=== PATIENT | male | born 1995 | race Caucasian/White ===

== ENCOUNTER 2025-02-13 13:55 | Emergency (ER) | payer OTHER, SELFPAY ==
--- NOTE | ~2025-02-13 | XR_ITS ---
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 Findings: No acute fracture or malalignment. No significant degenerative changes. Soft tissues unremarkable. Impression: No acute fracture or malalignment. Reviewed, dictated and finalized at location P. 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
--- OUTSIDE RECORDS SUMMARY | 2025-02-13 14:01 | XMS_ITS | Encounter Summary ---
Author Organization [facility] Address [address] [place] [address] Phone Care Team Providers Care Suture Gauger Name Role Phone Provider, None Primary Care Provider Unavailabl e Reason for Visit * Reason Comments Medication Refill Encounter Details Date Type Department Care Team (Late st Contact Info) Description 09/01/2021 Refill [facility] [address] [place] [address] Homa Omalley MD [address] [place], [place] [phone] Medication Refill Social History Tobacco Use Types Packs/Day Years Used Date Smoking Tobacco: Never Smokeless Tobacco: Never Alcohol Use Standard Drinks/Week Comments Never 0 (1 standard drink = 0.6 oz pur e alcohol) AUDIT-C Answer Date Recorded Frequency of Alcohol Consumption Never 02/21/2019 Average Number of Drinks Not on file 019 Frequency of Binge Drinking Not on file 02/03 Sexually Active Control Partners Comments Not Currently Sex and Gender Information Value Date Recorded Sex Assigned at Not on file Legal Sex Male 9:49 AM CDT Gender Identity Not on file Sexual Orientation Not on file COVID-19 Exposure Response Date Recorded In the last 10 days, have yo u been in contact with someone who was confirmed or suspected to have Coronavirus/COVID-19? No / Unsure 08/22/2021 10:06 AM CDT documented as of this encounter Miscellaneous Notes * Telephone Encounter - Mitali Appiah LPN - 09/02/2021 8:45 AM CDT Requested Prescriptions Pending Prescriptions Disp Refills ??? DULoxetine (CYMBALTA) [address] Particles [Pharmacy Med Name: DULOXETINE HCL DR 60 MG CAP] 180 Capsule 0 Sig: TAKE 1 CAPSULE BY MOUTH TWICE A DAY Last OV 08/22/2021 Next OV 11/18/2021 documented in this encounter Plan of Treatment Upcoming Encounters Date Type Department Care Team (Late st Contact Info) Description 03/08/2025 10:30 AM YARN PACKER Telemedicine [facility] [place] [address] [place] [phone] Homa Omalley MD [address] [place] [address] documented as of this encounter Visit Diagnoses Not on filedocumented in this encounter Care Teams Suture Gauger Relationship Specialty Start Date End Date Provider, None [place] PCP - General 01/30/19 documented as of this encounter
--- OUTSIDE RECORDS SUMMARY | 2025-02-13 14:01 | XMS_ITS | Encounter Summary ---
Author Organization [facility] Address [address] [place] [address] Phone Care Team Providers Care Material Loader Name Role Phone Provider, None Primary Care Provider Unavailabl e Reason for Visit * Reason Comments Medication Refill Encounter Details Date Type Department Care Team (Late st Contact Info) Description 09/05/2023 Refill [facility] [place] [address] [place] [address] Homa Omalley MD [address] [place], [place] [phone] Medication Refill Social History Tobacco Use Types Packs/Day Years Used Date Smoking Tobacco: Never Smokeless Tobacco: Never Alcohol Use Standard Drinks/Week Comments Never 0 (1 standard drink = 0.6 oz pur e alcohol) AUDIT-C Answer Date Recorded Frequency of Alcohol Consumption Never 02/21/2019 Average Number of Drinks Not on file 019 Frequency of Binge Drinking Not on file 02/03 PHQ-2 Answer Date Recorded Total Score - Questions 1-9 8 05/07 Sexually Active Control Partners Comments Not Currently Sex and Gender Information Value Date Recorded Sex Assigned at Not on file Legal Sex Male 9:49 AM CDT Gender Identity Not on file Sexual Orientation Not on file documented as of this encounter Miscellaneous Notes * Telephone Encounter - Lola Reese RN - 09/06/2023 10:11 AM CDT Requested Prescriptions Pending Prescriptions Disp Refills traZODone (DESYREL) 50 MG Tablet [Pharmacy Med Name: TRAZODONE 50 MG TABLET] 90 Tablet 0 Sig: TAKE 1 TABLET BY MOUTH EVERY DAY AT NIGHT Last Refill 06/06/23 Last OV 06/01/2023 Next OV 10/05/2023 documented in this encounter Plan of Treatment Upcoming Encounters Date Type Department Care Team (Late st Contact Info) Description 03/08/2025 10:30 AM GLOBAL IMPLEMENTATION MANAGER Telemedicine [facility] [address] [place] [phone] [place] [address] [place] [address] documented as of this encounter Visit Diagnoses Not on filedocumented in this encounter Additional Health Concerns Assessment Noted Time PHQ-9 Depression Total Score: 8 06/01/19 24 2:58 PM GLOBAL IMPLEMENTATION MANAGER documented as of this encounter Care Teams Material Loader Relationship Specialty Start Date End Date Provider, None [place] PCP - General 01/30/19 documented as of this encounter
--- OUTSIDE RECORDS SUMMARY | 2025-02-13 14:01 | XMS_ITS | Encounter Summary ---
Author Organization [facility] Address [address] [place] [address] Phone Care Team Providers Care Culinary Instructor Name Role Phone Provider, None Primary Care Provider Unavailabl e Reason for Visit * Reason Comments Medication Refill Encounter Details Date Type Department Care Team (Late Contact Info) Description 03/12/2020 Refill [facility] - [facility] HE[facility] [address] [address] Homa Omalley MD [address] [place] [address] Medication Refill Social History Tobacco Use Types [...] on file documented as of this encounter Plan of Treatment Upcoming Encounters Date Type Department Care Team (Late Contact Info) Description 03/08/2025 10:30 AM INFECTION PREVENTION SPECIALIST Telemedicine [facility] - [facility] AND [facility] HEALTH [address] [address] Homa Omalley MD [address] [place] [phone] documented as of this encounter Visit Diagnoses Not on filedocumented in this encounter Care Teams Culinary Instructor Relationship Specialty Start Date End Date Provider, None [place] PCP - General 01/30/19 documented as of this encounter
--- OUTSIDE RECORDS SUMMARY | 2025-02-13 14:01 | XMS_ITS | Encounter Summary ---
Author Organization [facility] Address [address] [place] [address] Phone Care Team Providers Care [place] Soundings Group Leader Name Role Phone Provider, None Primary Care Provider Unavailabl e Reason for Visit * Reason Comments Medication Refill Encounter Details Date Type Department Care Team (Late st Contact Info) Description 02/21/2023 Refill [facility] [address] [place] [address] Homa Omalley MD [address] [place], [place] [phone] Medication Refill Social History Tobacco Use Types [...] encounter Miscellaneous Notes * Telephone Encounter - Promise Ramos RN - 02/22/2023 8:28 AM CST Medication failed the protocol, provider to review and approve the medication order if appropriate. Requested Prescriptions Pending Prescriptions Disp Refills venlafaxine (EFFEXOR-XR) 37.5 MG CAPSULE SR 24 HR [Pharmacy Med Name: VENLAFAXINE HCL ER 37.5 MG CAP] 60 Capsule 0 Sig: Take 1 capsule every morning with food x 1 week, then take 2 capsules every morning Last Refill 01/19/2023 Last OV 01/19/2023 Next OV 03/09/2023 Requested Prescriptions Pending Prescriptions Disp Refills venlafaxine (EFFEXOR-XR) 37.5 MG CAPSULE SR 24 HR [Pharmacy Med Name: VENLAFAXINE HCL ER 37.5 MG CAP] 60 Capsule 0 Sig: Take 1 capsule every morning with food x 1 week, then take 2 capsules every morning SNRI (6 Month Refill Only) Protocol Failed - 02/21/2023 11:31 AM Failed - Patient has established therapy with Serotonin-Norepinephrine Reuptake Inhibitors for at least 6 months Passed - Visit with relevant provider in past 6 months or upcoming 90 days Recent Visits Date Type Provider Dept 01/19/23 Office Visit Homa Omalley MD [facility] 12/17/22 Office Visit Homa Omalley MD [facility] 09/16/22 Office Visit Homa Omalley MD [facility] Showing recent visits within past 182 days and meeting all other requirements Future Appointments Date Type Provider Dept 03/09/23 Appointment Homa Omalley MD [facility] Showing future appointments within next 90 days and meeting all other requirements Passed - Has an encounter in the past 6 months with a depression or anxiety visit diagnosis URE PRESS OPERATOR documented in this encounter Plan of Treatment Upcoming Encounters Date Type Department Care Team (Late st Contact Info) Description 03/08/2025 10:30 AM GRAVURE PRESS OPERATOR Telemedicine [facility]RY AND BEHAVIORAL HEALTH - [address] [phone] Homa Omalley MD [address] [place] [phone] documented as of this encounter Visit Diagnoses Not on filedocumented in this encounter Care Teams River [place] Soundings Group Leader Relationship Specialty Start Date End Date Provider, [place] PCP - General 01/30/19 documented as of this encounter
--- OUTSIDE RECORDS SUMMARY | 2025-02-13 14:01 | XMS_ITS | Encounter Summary ---
Author Organization [facility] Address [address] [place] [address] Phone Care Team Providers Care Shorts Sifter Name Role Phone Provider, None Primary Care Provider Unavailabl e Reason for Visit * Reason Comments Medication Refill Encounter Details Date Type Department Care Team (Late st Contact Info) Description 12/12/2022 Refill [facility] [place] [facility] [address] [place] [address] Homa Omalley MD [address] [place], [place] [phone] Medication Refill Social History Tobacco Use Types [...] Telephone Encounter - Lola Reese RN - 12/14/2022 9:30 AM CDT Requested Prescriptions Pending Prescriptions Disp Refills ??? traZODone (DESYREL) 50 MG Tablet [Pharmacy Med Name: TRAZODONE 50 MG TABLET] 90 Tablet 0 Sig: TAKE 1 TABLET BY MOUTH EVERY DAY AT NIGHT Last Refill 09/15/22 90+0 Last OV 09/16/2022 Next OV 12/17/2022 documented in this encounter Plan of Treatment Upcoming Encounters Date Type Department Care Team (Late st Contact Info) Description 03/08/2025 10:30 AM SOLE CUTTER Telemedicine [facility] - [address] [address] [place] [address] [place] [phone] documented as of this encounter Visit Diagnoses Not on filedocumented in this encounter Care Teams Shorts Sifter Relationship Specialty Start Date End Date Provider, None [place] PCP - General 01/30/19 documented as of this encounter
--- OUTSIDE RECORDS SUMMARY | 2025-02-13 14:01 | XMS_ITS | Encounter Summary ---
Author Organization [facility] Address [address] [place] [address] Phone Care Team Providers Care Washing Tub Operator Name Role Phone Provider, None Primary Care Provider Unavailabl e Reason for Visit * Reason Comments Medication Refill Encounter Details Date Type Department Care Team (Late st Contact Info) Description 03/23/2023 Refill [facility] [place] [address] [place] [address] Homa Omalley MD [address] [place], [place] [phone] Medication Refill Social History Tobacco Use Types [...] Telephone Encounter - Lola Reese RN - 03/24/2023 8:28 AM CST Requested Prescriptions Pending Prescriptions Disp Refills ??? DULoxetine (CYMBALTA) [address] Particles [Pharmacy Med Name: DULOXETINE HCL DR 60 MG CAP] 180 Capsule 0 Sig: TAKE 1 CAPSULE BY MOUTH TWICE A DAY Last Refill 01/22/23 Last OV 03/09/2023 Next OV 04/13/2023 RVISORY CBP OFFICER documented in this encounter Plan of Treatment Upcoming Encounters Date Type Department Care Team (Late st Contact Info) Description 03/08/2025 10:30 AM SUPERVISORY CBP OFFICER Telemedicine [facility]AL [facility] - [address] [phone] Homa Omalley MD [address] [place] [phone] documented as of this encounter Visit Diagnoses Not on filedocumented in this encounter Care Teams Washing Tub Operator Relationship Specialty Start Date End Date Provider, None [place] PCP - General 01/30/19 documented as of this encounter
--- OUTSIDE RECORDS SUMMARY | 2025-02-13 14:01 | XMS_ITS | Encounter Summary ---
Author Organization [facility] Address [address] [place] [address] Phone Care Team Providers Care Dairy Farm Supervisor Name Role Phone Provider, None Primary Care Provider Unavailabl e Reason for Visit * Reason Comments Medication Refill Encounter Details Date Type Department Care Team (Late st Contact Info) Description 02/26/2020 Refill [facility] [place] [address] [place] [address] Homa Omalley MD [address] [place], [place] [phone] Medication Refill Social History Tobacco Use Types [...] encounter Miscellaneous Notes * Telephone Encounter - Chato West RN - 02/26/2020 1:37 PM CST Patient requesting refill on Requested Prescriptions Pending Prescriptions Disp Refills ??? traZODone (DESYREL) 50 MG Tablet [Pharmacy Med Name: TRAZODONE 50 MG TABLET] 30 Tab 0 Sig: TAKE 1-2 TABLETS DAILY AT BEDTIME NEEDED Medication last filled on 02/11 (quantity 30) Last appointment: 02/12/2020 Next scheduled appointment: 04/09/2020 Medication pended and routed for review. EL POST CARRIER documented in this encounter Plan of Treatment Upcoming Encounters Date Type Department Care Team (Late st Contact Info) Description 03/08/2025 10:30 AM PARCEL POST CARRIER Telemedicine [facility] - [place] [address] [place] [address] [place] [address] [place] [address] documented as of this encounter Visit Diagnoses Not on filedocumented in this encounter Care Teams Dairy Farm Supervisor Relationship Specialty Start Date End Date Provider, None [place] PCP - General 01/30/19 documented as of this encounter
--- OUTSIDE RECORDS SUMMARY | 2025-02-13 14:01 | XMS_ITS | Encounter Summary ---
Author Organization [facility] Address [address] [place] [address] Phone Care Team Providers Care Carrot Buncher Name Role Phone Provider, None Primary Care Provider Unavailabl e Reason for Visit * Reason Comments Medication Refill Encounter Details Date Type Department Care Team (Late st Contact Info) Description 11/28/2022 Refill [facility] - [place] [address] [place] [address] Homa Omalley MD [address] [place], [place] [phone] Medication Refill Social History Tobacco Use Types [...] Telephone Encounter - Lola Reese RN - 11/30/2022 10:33 AM CDT Requested Prescriptions Pending Prescriptions Disp Refills ??? QUEtiapine (SEROquel) 25 MG Tablet [Pharmacy Med Name: QUETIAPINE FUMARATE 25 MG TAB] 45 Tablet2 Sig: TAKE 1 -2 TABLETS BY MOUTH ONCE DAILY AT BEDTIME Last Refill 11/06/22 Last OV 09/16/2022 Next OV 12/17/2022 documented in this encounter Plan of Treatment Upcoming Encounters Date Type Department Care Team (Late st Contact Info) Description 03/08/2025 10:30 AM QUALITY ASSURANCE/R&D LAB TECHNICIAN Telemedicine [facility] - [address] [address] Homa Omalley MD [address] [place] [phone] documented as of this encounter Visit Diagnoses Not on filedocumented in this encounter Care Teams Carrot Buncher Relationship Specialty Start Date End Date Provider, None [place] PCP - General 01/30/19 documented as of this encounter
--- OUTSIDE RECORDS SUMMARY | 2025-02-13 14:01 | XMS_ITS | Encounter Summary ---
Author Organization [facility] Address [address] [place] [address] Phone Care Team Providers Care Ceramic Tile Installer Name Role Phone Provider, None Primary Care Provider Unavailabl e Reason for Visit * Reason Comments Medication Refill Encounter Details Date Type Department Care Team (Late st Contact Info) Description 05/27/2020 Refill [facility] [address] [place] [address] Homa Omalley MD [address] [place], [place] [phone] Medication Refill Social History Tobacco Use Types [...] Exposure Response Date Recorded In the last month, have you been in contact with someone who was confirmed or suspected to have Coronavirus / COVID-19? Yes 2020 3:19 PM SECURITY SYSTEMS INTEGRATOR documented as of this encounter Miscellaneous Notes * Telephone Encounter - Chato West RN - 05/27/2020 9:48 AM CST Cymbalta refill requested. RITY SYSTEMS INTEGRATOR documented in this encounter Plan of Treatment Upcoming Encounters Date Type Department Care Team (Late st Contact Info) Description 03/08/2025 10:30 AM SECURITY SYSTEMS INTEGRATOR Telemedicine [facility] - PSYCHIATRY AND BEHAVIORAL HEALTH [address] [phone] Homa Omalley MD [address] [place] [phone] documented as of this encounter Visit Diagnoses Not on filedocumented in this encounter Care Teams Ceramic Tile Installer Relationship Specialty Start Date End Date Provider, None [place] PCP - General 01/30/19 documented as of this encounter
--- OUTSIDE RECORDS SUMMARY | 2025-02-13 14:01 | XMS_ITS | Clinical Summary ---
Author Organization [facility] Address [address] [place] [address] Care Team Providers Care Delicatessen Clerk Name Role Phone Chato Noriega MD Primary Care Provider [phone] Allergies No known active allergies Medications DULoxetine DR (CYMBALTA) 60 mg capsule Take 1 capsule (60 mg total) by mouth 2 (two) times a day Active QUEtiapine (SEROquel) 25 mg tablet TAKE 1 -2 TABLETS BY MOUTH ONCE DAILY AT BEDTIME 09/29/2019 Active traZODone (DESYREL) 50 mg tablet Take 1 tablet (50 mg total) by mouth nightly Active naproxen (NAPROSYN) 500 mg tabletIndicatio ns:Pain of right great toe Take 1 tablet (500 mg total) by mouth 2 (two) times a day with meals 60 tablet 05/30/2024 Active Active Problems No known active problems Social History Tobacco Use Types Packs/Day Years Used Date Smoking Tobacco: Never Passive Smoke Exposure: Never Smokeless Tobacco: Never Tobacco Cessation:Counseling Given: Not Answered Sex and Gender Information Value Date Recorded Sex Assigned at Not on file Legal Sex Male 5:38 PM RACE CAR MECHANIC Gender Identity Not on file Sexual Orientation Not on file Last Filed Vital Signs Vital Sign Reading Time Taken Comments Blood Pressure 116/70 05/30/2024 3:05 PM RACE CAR MECHANIC Pulse 110 05/30/2024 3:05 PM RACE CAR MECHANIC Temperature 36.9 C (98.5 F) 05/30/2024 3:05 PM RACE CAR MECHANIC Respiratory Rate 20 05/30/2024 3:05 PM RACE CAR MECHANIC Oxygen Saturation 97% 05/30/2024 3:05 PM RACE CAR MECHANIC Inhaled Oxygen Concentration - - Weight 104.3 kg (230 lb) 05/30/2024 3:05 PM RACE CAR MECHANIC Height 177.8 cm (5' 10) 05/30/2024 3:05 PM RACE CAR MECHANIC Body Mass Index 33 05/30/2024 3:05 PM RACE CAR MECHANIC Plan of Treatment Health Maintenance Due Date Last Done Comments Depression Screening 1994 Hepatitis C Screening 1994 Varicella Vaccines (2 of 2 - 2-dose childhood series) 08/17/2000 05/25/2000 Regular Well Visit/Exam 18-64 2012 HPV Vaccines (1 - 3-dose SCDM series) 2021 Covid-19 Vaccine ( season) 2024 01/11/2024, 01/22/2023, 01/23/2022, Additional history exists Influenza Vaccine (#1) 2024 , 01/22/2023, 02/22/2021, Additional history exists DTaP/Tdap/Td Vaccine (8 - Td or Tdap) 12/02/2030 12/02/2020, 02/22/2007, 06/25/1998, Additional history exists Hepatitis B Screening Completed 03/03/1995 , 1994, 1994 Pneumococcal vaccine <65 Aged Out No longer eligible based on patient's age to complete this topic Insurance [employer] Care Teams Delicatessen Clerk Relationship Specialty Start Date End Date Chat[place] [address] [place] [address] PCP - General Family Medicine 05/11/24
--- OUTSIDE RECORDS SUMMARY | 2025-02-13 14:01 | XMS_ITS | Encounter Summary ---
Author Organization [facility] Address [address] [place] [address] Phone Care Team Providers Care Burner Tender Name Role Phone Provider, None Primary Care Provider Unavailabl e Reason for Visit * Reason Comments Medication Refill Encounter Details Date Type Department Care Team (Late st Contact Info) Description 02/04/2023 Refill [facility] [address] [place] [address] Homa Omalley MD [address] [place], [place] [phone] Medication Refill Social History Tobacco Use Types [...] suspected to have Coronavirus/COVID-19? No / Unsure 01/19/2023 1:21 PM CDT documented as of this encounter Miscellaneous Notes * Telephone Encounter - Lola Reese RN - 02/04/2023 8:32 AM CDT Requested Prescriptions Pending Prescriptions Disp Refills ??? QUEtiapine (SEROquel) 25 MG Tablet [Pharmacy Med Name: QUETIAPINE FUMARATE 25 MG TAB] 45 Tablet2 Sig: TAKE 1 -2 TABLETS BY MOUTH ONCE DAILY AT BEDTIME Last Refill 01/15/23 22 day supply Last OV 01/19/2023 Next OV 03/09/2023 Due 02/06/23 documented in this encounter Plan of Treatment Upcoming Encounters Date Type Department Care Team (Late st Contact Info) Description 03/08/2025 10:30 AM GENERAL REPAIRER Telemedicine [facility] - [address] [address] Homa Omalley MD [address] [place] [address] documented as of this encounter Visit Diagnoses Not on filedocumented in this encounter Care Teams Burner Tender Relationship Specialty Start Date End Date Provider, None [place] PCP - General 01/30/19 documented as of this encounter
--- OUTSIDE RECORDS SUMMARY | 2025-02-13 14:01 | XMS_ITS | Encounter Summary ---
Author Organization [facility] Address [address] [place] [address] Phone Care Team Providers Care Assistant Maintenance Manager Name Role Phone Provider, None Primary Care Provider Unavailabl e Reason for Visit * Reason Comments Medication Refill Encounter Details Date Type Department Care Team (Late st Contact Info) Description 08/20/2020 Refill [facility] [address] [place] [address] Homa Omalley MD [address] [place], [place] [phone] Medication Refill Social History Tobacco Use Types [...] Telephone Encounter - Mitali Appiah LPN - 08/21/2020 12:29 PM CDT Requested Prescriptions Pending Prescriptions Disp Refills ??? DULoxetine (CYMBALTA) [address] Particles [Pharmacy Med Name: DULOXETINE HCL DR 60 MG CAP] 90 Capsule Sig: TAKE 1 CAPSULE BY MOUTH EVERY DAY Last OV 2020 Next OV 08/27/2020 documented in this encounter Plan of Treatment Upcoming Encounters Date Type Department Care Team (Late st Contact Info) Description 03/08/2025 10:30 AM FOREST FIRE CONTROL OFFICER Telemedicine [facility] [place] [address] [place] [phone] Homa Omalley MD [address] [place], [place] [phone] documented as of this encounter Visit Diagnoses Not on filedocumented in this encounter Care Teams Assistant Maintenance Manager Relationship Specialty Start Date End Date Provider, None [place] PCP - General 01/30/19 documented as of this encounter
--- OUTSIDE RECORDS SUMMARY | 2025-02-13 14:01 | XMS_ITS | Encounter Summary ---
Author Organization [facility] Address [address] [place] [address] Phone Care Team Providers Care Parliamentary Archivist Name Role Phone Provider, None Primary Care Provider Unavailabl e Reason for Visit * Reason Comments Medication Refill Encounter Details Date Type Department Care Team (Late st Contact Info) Description 05/13/2022 Refill [facility] [place] [address] [place] [address] Homa Omalley MD [address] [place], [place] [phone] Medication Refill Social History Tobacco Use Types [...] Telephone Encounter - Lola Reese RN - 05/18/2022 9:17 AM CST Requested Prescriptions Pending Prescriptions Disp Refills ??? traZODone (DESYREL) 50 MG Tablet [Pharmacy Med Name: TRAZODONE 50 MG TABLET] 30 Tablet 0 Sig: TAKE 1 TABLET BY MOUTH NIGHTLY Last Refill 04/21/22 30+0 Last OV 02/27/2022 Next OV 06/17/2022 PASSENGER FIRER documented in this encounter Plan of Treatment Upcoming Encounters Date Type Department Care Team (Late st Contact Info) Description 03/08/2025 10:[address] PASSENGER FIRER Telemedicine [facility] - [address] [address] Homa Omalley MD [address] [place] [phone] documented as of this encounter Visit Diagnoses Not on filedocumented in this encounter Care Teams Parliamentary Archivist Relationship Specialty Start Date End Date Provider, None [place] PCP - General 01/30/19 documented as of this encounter
--- OUTSIDE RECORDS SUMMARY | 2025-02-13 14:01 | XMS_ITS | Encounter Summary ---
Author Organization [facility] Address [address] [place] [address] Phone Care Team Providers Care Supervisor Tan Room Name Role Phone Provider, None Primary Care Provider Unavailabl e Reason for Visit * Reason Comments Medication Refill Encounter Details Date Type Department Care Team (Late st Contact Info) Description 09/15/2022 [facility]ill [facility] [address] [place] [address] Homa Omalley MD [address] [place], [place] [phone] Medication Refill Social History Tobacco Use Types [...] suspected to have Coronavirus/COVID-19? No / Unsure 09/16/2022 10:25 AM CDT documented as of this encounter Miscellaneous Notes * Telephone Encounter - Lola Reese RN - 09/15/2022 8:29 AM CDT Requested Prescriptions Pending Prescriptions Disp Refills ??? traZODone (DESYREL) 50 MG Tablet [Pharmacy Med Name: TRAZODONE 50 MG TABLET] 90 Tablet Sig: TAKE 1 TABLET BY MOUTH NIGHTLY Last Refill 06/18/22 90+0 Last OV 06/18/2022 Next OV 09/16/2022 documented in this encounter Plan of Treatment Upcoming Encounters Date Type Department Care Team (Late st Contact Info) Description 03/08/2025 10:30 AM SCIENCE WRITER Telemedicine [facility] [place] [address] [place] [phone] Homa Omalley MD [address] [place] [address] documented as of this encounter Visit Diagnoses Not on filedocumented in this encounter Care Teams Supervisor Tan Room Relationship Specialty Start Date End Date Provider, None [place] PCP - General 01/30/19 documented as of this encounter
--- OUTSIDE RECORDS SUMMARY | 2025-02-13 14:01 | XMS_ITS | Encounter Summary ---
Author Organization [facility] Address [address] [place] [address] Phone Care Team Providers Care Contact Person Name Role Phone Provider, None Primary Care Provider Unavailabl e Reason for Visit * Reason Comments Medication Refill Encounter Details Date Type Department Care Team (Late st Contact Info) Description 04/12/2023 Refill [facility] [place] [address] [place] [address] Homa Omalley MD [address] [place], [place] [phone] Medication Refill Social History Tobacco Use Types [...] Telephone Encounter - Lola Reese RN - 04/12/2023 9:32 AM CST Requested Prescriptions Pending Prescriptions Disp Refills ??? QUEtiapine (SEROquel) 25 MG Tablet [Pharmacy Med Name: QUETIAPINE FUMARATE 25 MG TAB] 45 Tablet2 Sig: TAKE 1 -2 TABLETS BY MOUTH ONCE DAILY AT BEDTIME Last Refill 03/23/23 for 23 days. Last OV 03/09/2023 Next OV 04/13/2023 SERVICE TECHNICIAN documented in this encounter Plan of Treatment Upcoming Encounters Date Type Department Care Team (Late st Contact Info) Description 03/08/2025 10:30 AM CNC SERVICE TECHNICIAN Telemedicine [facility] - [address] [address] Homa Omalley MD [address] [place] [phone] documented as of this encounter Visit Diagnoses Not on filedocumented in this encounter Care Teams Contact Person Relationship Specialty Start Date End Date Provider, None [place] PCP - General 01/30/19 documented as of this encounter
--- OUTSIDE RECORDS SUMMARY | 2025-02-13 14:01 | XMS_ITS | Encounter Summary ---
Author Organization [facility] Address [address] [place] [address] Phone Care Team Providers Care Territory Sales Manager Name Role Phone Provider, None Primary Care Provider Unavailabl e Reason for Visit * Reason Comments Medication Refill Encounter Details Date Type Department Care Team (Late st Contact Info) Description 08/28/2023 Refill [facility] [place] [address] [place] [address] Homa Omalley MD [address] [place], [place] [phone] Medication Refill Social History Tobacco Use Types [...] Telephone Encounter - Lola Reese RN - 08/31/2023 10:21 AM CDT Requested Prescriptions Pending Prescriptions Disp Refills DULoxetine (CYMBALTA) [address] Gonzales [Pharmacy Med Name: DULOXETINE HCL DR 60 MG CAP] 180 Capsule 0 Sig: TAKE 1 CAPSULE BY MOUTH TWICE A DAY Last Refill 06/01/23 Last OV 06/01/2023 Next OV documented in this encounter Plan of Treatment Upcoming Encounters Date Type Department Care Team (Late st Contact Info) Description 03/08/2025 10:30 AM PIPE FITTER MAINTENANCE Telemedicine [facility] [address] [place] [address] Homa Omalley MD [address] [place] [address] documented as of this encounter Visit Diagnoses Not on filedocumented in this encounter Additional Health Concerns Assessment Noted Time PHQ-9 Depression Total Score: 8 06/01/19 24 2:58 PM PIPE FITTER MAINTENANCE documented as of this encounter Care Teams Territory Sales Manager Relationship Specialty Start Date End Date Provider, None [place] PCP - General 01/30/19 documented as of this encounter
--- OUTSIDE RECORDS SUMMARY | 2025-02-13 14:01 | XMS_ITS | Clinical Summary ---
Author Organization [facility] - [facility] [place] Address [address] [place] [address] Phone Care Team Providers Care Cash Applications Coordinator Name Role Phone Provider, None Primary Care Provider Unavailabl e Allergies No known active allergies Medications naproxen (NAPROSYN) 500 MG Tablet Take 500 mg by mouth 2 times daily (with meals). Active traZODone (DESYREL) 50 MG Tablet TAKE 1 TABLET BY MOUTH EVERY DAY AT NIGHT 90 Tablet 5 Active DULoxetine (CYMBALTA) [address] Particles TAKE 1 CAPSULE BY MOUTH TWICE A DAY 180 Capsule 5 Active QUEtiapine (SEROquel) 25 MG Tablet TAKE 1 -2 TABLETS BY MOUTH ONCE DAILY AT BEDTIME 135 Tablet 5 Active QUEtiapine (SEROquel) 25 MG Tablet TAKE 1 -2 TABLETS BY MOUTH ONCE DAILY AT BEDTIME 135 Tablet 5 02/01/20 25 Discontinued Active Problems Problem Noted Date Diagnosed Date Moderate episode of recurrent major depressive d isorder 02/21/2019 Insomnia 02/21/2019 Encounters Date Type Department Care Team Description 01/31/2025 Refill [facility] [place] - PSYCHIATRY AND [address] [address] Homa Omalley MD Medication Refill 11/28/2024 8:30 AM CDT Telemedicine [facility] - PSYCHIATRY AND BEHAVIORAL [address] [address] Homa Omalley MD MDD (major depressive disorder), recurrent episode, mild (HCC) (Primary Dx); Insomnia, unspecified type 11/28/2024 Travel 11/23/2024 [facility] [address] [phone] Homa Omalley MD Medication Refill 11/18/2024 [facility] [address] [phone] Hmoa Omalley MD Medication Refill from Last 3 Months Family History Medical History Relation Name Comments Depression Father No Known Problems Maternal Grandfather No Known Problems Maternal Grandmother Depression Mother No Known Problems Paternal Grandfather No Known Problems Paternal Grandmother Attention Deficit Hyperactivity Disorder Sister Relation Name Status Comments Father Alive Maternal Grandfather Maternal Grandmother Alive Mother Alive Paternal Grandfather Paternal Grandmother Alive Sister Alive Social History Tobacco Use Types Packs/Day Years Used Date Smoking Tobacco: Never Smokeless Tobacco: Never Tobacco Cessation:Counseling Given: Yes Alcohol Use Standard Drinks/Week Comments Never 0 [...] Sign Reading Time Taken Comments Blood Pressure 110/68 11/25/2023 12:54 PM CDT Pulse 118 11/25/2023 12:54 PM CDT Temperature 36.3 C (97.4 F) 11/25/2023 12:54 PM CDT Respiratory Rate 15 11/25/2023 12:5 4 PM CDT Oxygen Saturation 98% 11/25/2023 12: 54 PM CDT Inhaled Oxygen Concentration - - Weight 114.5 kg (252 lb 6.4 oz) 024 12:54 PM CDT Height 188 cm (6' 2) 10/05/2023 2:31 PM CDT Body Mass Index 32.41 10/05/2023 2:31 PM CDT Plan of Treatment Upcoming Encounters Date Type Department Care Team (Late st Contact Info) Description 03/08/2025 10:30 AM ENTERTAINMENT USHER Telemedicine [facility] [address] [place] [phone] Homa Omalley MD [address] [place], [place] [address] Health Maintenance Due Date Last Done Comments Hepatitis C Virus (HCV) Screening 1994 Human Papillomavirus (HPV) Immunization (1 - 3-dose SCDM series) 2021 Influenza Immunization (#1) 12/04/202411/2023, 01/22/2023, 02/22/2021, Additional history exists SARS-COV-2 Immunization ( season) 2024 01/11/2024, 01/22/2023, 01/23/2022, Additional history exists Respiratory Syncytial Virus (RSV) Immunization (Adult) (1 - 1-dose 75+ series) 2069 Hepatitis B Immunization Completed 995, 1994, 1994 Meningococcal Immunization (ACWY) Completed 09/27/2012, 02/22/2007 DTaP/Tdap/Td Immunization Discontinued 2020, 02/22/2007, 06/25/1998, Additional history exists TdaP Immunization Completed 12/02/2020, 02/22/2007 Pneumococcal Immunization Combined Aged Out No longer eligible based on patient's age to complete this topic Rotavirus Immunization Aged Out No lo nger eligible based on patient's age to complete this topic Procedures Procedure Name Priority Date/Time Associated Diagnosis Comments HEMOGLOBIN A1C W/ ESTIMATED GLUCOSE Routine 11/28/2024 11:27 AM CDT Long-term use of high-risk medication LIPID PANEL Routine 11/28/2024 11:27 AM CDT Long-term use of high-risk medication from Last 3 Months Results * HEMOGLOBIN A1C W/ ESTIMATED GLUCOSE (11/28/2024 11:27 AM CDT) HGB-A1C 5.7 4.0 - 6.0 % 11/28/2024 1:19 PM CDT [facility] Est Average Glucose 116.9 mg/dL 11/28/2024 1:19 PM CDT [facility] Blood Venipuncture / Unknown 11/28/2024 11:27 AM CDT 11/28/2024 12:10 PM CDT Narrative [facility] - 11/28/2024 1:19 PM CDT HEMOGLOBIN A1C: DIABETIC PATIENTS: WELL-CONTROLLED: 6.2 - 7.0 INTERMEDIATE WELL-CONTROLLED: 7.0 - 9.0 POORLY-CONTROLLED: >9.0 Specimens containing greater than 5% of Hemoglobin F may result in lower than expected % HbA1C results. us Homa Omalley MD CHEMISTRY ORDERABLES Final Resu lt [facility] [address] [place] [address] * (ABNORMAL) LIPID PANEL (11/28/2024 11:27 AM CDT) CHOLESTEROL 165 <200 mg/dL 11/28/2024 12:37 PM CDT [facility] TRIGLYCERIDES 238(H) <150 mg/dL 11/28/2024 12:37 PM CDT [facility] HDL CHOLESTEROL 36(L) >40 mg/dL 12:37 PM CDT [facility] LDL 81 <130 mg/dL 11/28/2024 12:37 PM CDT [facility] VLDL 48 10 - 50 mg/dL 11/28/2024 12:37 PM CDT [facility] CHOL/HDL RATIO 4.6(H) 0.0 - 4.4 11/28/2024 12:37 PM CDT [facility] NON-HDL CHOLESTEROL 129 <130 mg/dL 11/28/2024 12:37 PM CDT [facility] IS THE PATIENT REQUIRED TO BE FASTING? No 11/28/2024 12:37 PM CDT [facility] Blood Venipuncture / Unknown 11/28/2024 11:27 AM CDT 11/28/2024 12:10 PM CDT us Homa Omalley MD CHEMISTRY ORDERABLES Final Resu lt [facility] [address] [place] [address] from Last 3 Months Insurance [employer] Care Teams Cash Applications Coordinator Relationship Specialty Start Date End Date Provider, None [place] PCP - General 01/30/19
--- OUTSIDE RECORDS SUMMARY | 2025-02-13 14:01 | XMS_ITS | Encounter Summary ---
Author Organization [facility] Address [address] [place] [address] Phone Care Team Providers Care Tar Pot Worker Name Role Phone Provider, None Primary Care Provider Unavailabl e Reason for Visit * Reason Comments Medication Refill Encounter Details Date Type Department Care Team ([facility] st Contact Info) Description 11/25/2020 Refill [facility] [place] [address] [place] [address] Homa Omalley MD [address] [place], [place] [phone] Medication Refill Social History Tobacco Use Types [...] Telephone Encounter - Lola Reese RN - 11/25/2020 12:45 PM CDT Requested Prescriptions Pending Prescriptions Disp Refills ??? QUEtiapine (SEROquel) 25 MG Tablet [Pharmacy Med Name: QUETIAPINE FUMARATE 25 MG TAB] 45 Tablet2 Sig: TAKE 1-2 TABLETS DAILY AT BEDTIME NEEDED Last Refill 08/27/20 45 +2 Last OV 10/23/2020 Next OV 12/31/2020 documented in this encounter Plan of Treatment Upcoming Encounters Date Type Department Care Team (Late st Contact Info) Description 03/08/2025 10:30 AM MILK ROUTE SUPERVISOR Telemedicine [facility] - [address] [phone] [place] [address] [place] [phone] documented as of this encounter Visit Diagnoses Not on filedocumented in this encounter Care Teams Tar Pot Worker Relationship Specialty Start Date End Date Provider, None [place] PCP - General 01/30/19 documented as of this encounter
--- OUTSIDE RECORDS SUMMARY | 2025-02-13 14:01 | XMS_ITS | Encounter Summary ---
Author Organization [facility] Address [address] [place] [address] Phone Care Team Providers Care Pack Master Name Role Phone Provider, None Primary Care Provider Unavailabl e Reason for Visit * Reason Comments Medication Refill Encounter Details Date Type Department Care Team (Late st Contact Info) Description 08/04/2023 Refill [facility] - [place] [address] [place] [address] Homa Omalley MD [address] [place] [address] Medication Refill Social History Tobacco Use [...] Telephone Encounter - Lola Reese RN - 08/04/2023 8:13 AM CDT Requested Prescriptions Pending Prescriptions Disp Refills QUEtiapine (SEROquel) 25 MG Tablet [Pharmacy Med Name: QUETIAPINE FUMARATE 25 MG TAB] 45 Tablet 2 Sig: TAKE 1 -2 TABLETS BY MOUTH ONCE DAILY AT BEDTIME Last Refill 07/14/23 Last OV 06/01/2023 Next OV 08/26/2023 documented in this encounter Plan of Treatment Upcoming Encounters Date Type Department Care Team (Late st Contact Info) Description 03/08/2025 10:30 AM STAFF AUDITOR Telemedicine [facility] [address] [phone] Homa Omalley MD [address] [place] [address] documented as of this encounter Visit Diagnoses Not on filedocumented in this encounter Additional Health Concerns Assessment Noted Time PHQ-9 Depression Total Score: 8 06/01/19 24 2:58 PM STAFF AUDITOR documented as of this encounter Care Teams Pack Master Relationship Specialty Start Date End Date Provider, None [place] PCP - General 01/30/19 documented as of this encounter
--- OUTSIDE RECORDS SUMMARY | 2025-02-13 14:01 | XMS_ITS | Encounter Summary ---
Author Organization [facility] Address [address] [place] [address] Phone Care Team Providers Care Advertising Operations Coordinator Name Role Phone Provider, None Primary Care Provider Unavailabl e Reason for Visit * Reason Comments Medication Refill Encounter Details Date Type Department Care Team (Late st Contact Info) Description 12/09/2021 Refill [facility] [address] [place] [address] Homa Omalley MD [address] [place], [place] [phone] Medication Refill Social History Tobacco Use Types [...] suspected to have Coronavirus/COVID-19? No / Unsure 11/17/2021 10:08 AM CDT documented as of this encounter Miscellaneous Notes * Telephone Encounter - Lola Reese RN - 12/09/2021 10:11 AM CDT Requested Prescriptions Pending Prescriptions Disp Refills ??? DULoxetine (CYMBALTA) [address] Particles [Pharmacy Med Name: DULOXETINE HCL DR 60 MG CAP] 180 Capsule 0 Sig: TAKE 1 CAPSULE BY MOUTH TWICE A DAY Last Refill 09/02/21 180+0 Last OV 11/18/2021 Next OV 02/13/2022 documented in this encounter Plan of Treatment Upcoming Encounters Date Type Department Care Team (Late st Contact Info) Description 03/08/2025 10:30 AM FILM SPOOLER Telemedicine [facility] - [address] [phone] Homa Omalley MD [address] [place] [address] documented as of this encounter Visit Diagnoses Not on filedocumented in this encounter Care Teams Advertising Operations Coordinator Relationship Specialty Start Date End Date Provider, None [place] PCP - General 01/30/19 documented as of this encounter
--- OUTSIDE RECORDS SUMMARY | 2025-02-13 14:01 | XMS_ITS | Encounter Summary ---
Author Organization [facility] Address [address] [place] [address] Phone Care Team Providers Care Voice Systems Engineer Name Role Phone Provider, None Primary Care Provider Unavailabl e Reason for Visit * Reason Comments Medication Refill Encounter Details Date Type Department Care Team (Late st Contact Info) Description 07/15/2020 Refill [facility] [place] [address] [place] [address] Homa Omalley MD [address] [place], [place] [phone] Medication Refill Social History Tobacco Use Types [...] encounter Miscellaneous Notes * Telephone Encounter - Jada Reeves ([place]) - 07/19/2020 12:39 PM CDT Patient was called and notified of this refill. Pharmacy was verified for pickup. Patient stated understanding. * Telephone Encounter - Mitali Appiah LPN - 07/15/2020 1:37 PM CDT Requested Prescriptions Pending Prescriptions Disp Refills ??? QUEtiapine (SEROquel) 25 MG Tablet [Pharmacy Med Name: QUETIAPINE FUMARATE 25 MG TAB] 45 Tablet1 Sig: TAKE 2 TABLETS DAILY AT BEDTIME NEEDED Last OV 2020 Next OV 08/27/2020 documented in this encounter Plan of Treatment Upcoming Encounters Date Type Department Care Team (Late st Contact Info) Description 03/08/2025 10:30 AM WOODS SUPERINTENDENT Telemedicine [facility] - [address] [phone] Homa Omalley MD [address] [place] [address] documented as of this encounter Visit Diagnoses Not on filedocumented in this encounter Care Teams Voice Systems Engineer Relationship Specialty Start Date End Date Provider, None [place] PCP - General 01/30/19 documented as of this encounter
--- OUTSIDE RECORDS SUMMARY | 2025-02-13 14:01 | XMS_ITS | Encounter Summary ---
Author Organization [facility] Address [address] [place] [address] Phone Care Team Providers Care Inspection Machine Tender Name Role Phone Provider, None Primary Care Provider Unavailabl e Reason for Visit * Reason Comments Medication Refill Encounter Details Date Type Department Care Team (Late st Contact Info) Description 01/17/2023 Refill [facility] [place] [address] [place] [address] Homa Omalley MD [address] [place], [place] [phone] Medication Refill Social History Tobacco Use Types [...] Telephone Encounter - Lola Reese RN - 01/18/2023 10:34 AM CDT Requested Prescriptions Pending Prescriptions Disp Refills ??? DULoxetine (CYMBALTA) [address] Christian [Pharmacy Med Name: DULOXETINE HCL DR 60 MG CAP] 180 Capsule Sig: TAKE 1 CAPSULE BY MOUTH TWICE A DAY Last Refill 12/17/22 Last OV 12/17/2022 Next OV 01/19/2023 documented in this encounter Plan of Treatment Upcoming Encounters Date Type Department Care Team (Late st Contact Info) Description 03/08/2025 10:30 AM QUANTOMETER OPERATOR Telemedicine [facility] - [place] [address] [place] [address] Homa Omalley MD [address] [place] [address] documented as of this encounter Visit Diagnoses Not on filedocumented in this encounter Care Teams Inspection Machine Tender Relationship Specialty Start Date End Date Provider, None [place] PCP - General 01/30/19 documented as of this encounter
--- OUTSIDE RECORDS SUMMARY | 2025-02-13 14:01 | XMS_ITS | Encounter Summary ---
Author Organization [facility] Address [address] [place] [address] Phone Care Team Providers Care Health Claims Examiner Name Role Phone Provider, None Primary Care Provider Unavailabl e Reason for Visit * Reason Comments Medication Refill Encounter Details Date Type Department Care Team (Late Contact Info) Description [facility]2020 [facility]IORAL HEALTH [address] [phone] Homa Omalley MD [address] [place] [address] Medication Refill Social History Tobacco Use [...] (Late Contact Info) Description 03/08/2025 10:30 AM WORKFORCE INVESTMENT ACT CAREER MANAGER Telemedicine [facility] AND [facility]IORAL [facility] [address] [phone] Homa Omalley MD [address] [place] [phone] documented as of this encounter Visit Diagnoses Not on filedocumented in this encounter Care Teams Health Claims Examiner Relationship Specialty Start Date End Date Provider, None [place] PCP - General 01/30/19 documented as of this encounter
[2025-02-13 14:02] VITALS: BP 133/77; PULSE 100; RESP 20; TEMP 36.7; O2SAT 98
--- NOTE | 2025-02-13 14:42 | ED.LOWEXIN ---
HPI - Extremity Injury (Lower) General Chief Complaint: Extremity Injury, Lower Stated Complaint: Right foot pain Time Seen by Provider: 02/13/25 14:10 Source: patient and RN notes reviewed Mode of arrival: ambulatory Limitations: no limitations History of Present Illness HPI Narrative: 29-year-old male patient Presents Express Care complaining of right foot pain proximally 5 days. Patient denies any falls or injuries. Patient noticed a when he was bearing weight on his right foot. Patient says the pain is primarily is 1st MCP joint when he is bearing weight. Patient said it inserts he was wearing were damaged near the 1st MCP joint that he wears for plantar fasciitis. Patient said since then has bought new inserts that are not not damaged. However patient still has pain. Patient denies any pain when he is not bearing weight on his foot. Patient is in trying help with symptoms. Patient denies any numbness, tingling or any other injuries. Patient denies any significant past medical history. Related Data Home Medications ?Medication ?Instructions ?Recorded ?Confirmed ?Last Taken ?Type duloxitine 02/13/25 Unknown History trazadone 02/13/25 Unknown History Allergies Allergy/AdvReac Type Severity Reaction Status Date / Time No Known Allergies Allergy Verified 02/13/25 14:09 Review of Systems Review of Systems: CONSTITUTIONAL: Denies fever, chills, or sweats. EYES: Denies visual changes, redness, or discharge. ENT: Denies rhinorrhea, congestion, sore throat, or otalgia. CARDIOVASCULAR: Denies chest pain, palpitations, or edema. RESPIRATORY: Denies cough or dyspnea. GASTROINTESTINAL: Denies abdominal pain, nausea, vomiting, or diarrhea. GENITOURINARY: Denies dysuria or hematuria. SKIN: Denies rash, wound, or itching. MUSCULOSKELETAL: Denies back pain, joint pain, or myalgia. Positive for right foot pain NEUROLOGIC: Denies headache, numbness, or weakness. PSYCHIATRIC: Denies anxiety or depression. All other systems reviewed are negative, except as documented in HPI. PMFSH Comments At the time of my signature, I reviewed and agree with the nursing past medical, surgical, social, and family history. There is no relevant family history pertinent to the patient complaint. Exam Narrative: GENERAL: This is a well-nourished, well-developed adult, in no apparent distress. They are non ill-appearing, nontoxic appearing. HEAD: normocephalic, atraumatic. EYES: Sclera clear/white. Vision is grossly intact. Conjunctiva normal. Extraocular movement intact. EARS: External ears normal Hearing grossly intact. NOSE: External nose normal THROAT: Mucous membranes moist NECK: Neck supple CARDIOVASCULAR: Regular rate and rhythm RESPIRATORY: Respiratory rate normal, respiratory effort nonlabored, no respiratory distress NEURO: awake, alert, and oriented to person, place and time. There were no obvious focal neurologic abnormalities. EXTREMITIES: Right foot: No obvious deformity, injury, swelling, bruising, redness. Normal range of motion. Normal range of motion of 1st phalanx. No bony tenderness. Capillary refill less than 3 seconds. Right pedal Pulse 2 +palpable. Normal sensation. Neurovascular status intact distal injury. Patient able to wiggle his toes. Pain elicited to the 1st MCP joint when bearing weight. BACK: Nontender without deformity. Course Course Emergency Course: Portions of this record may have been created with voice recognition software Level of Care: Express Care Visit Vital Signs Vital signs: Vital Signs Temperature 98.0 F 02/13/25 14:02 Pulse Rate 100 02/13/25 14:02 Respiratory Rate 20 02/13/25 14:02 Blood Pressure 133/77 02/13/25 14:02 Pulse Oximetry 98 02/13/25 14:02 Oxygen Delivery Room Air 02/13/25 14:02 Temperature 98.0 F 02/13/25 14:02 Pulse Rate 100 02/13/25 14:02 Respiratory Rate 20 02/13/25 14:02 Blood Pressure 133/77 02/13/25 14:02 Pulse Oximetry 98 02/13/25 14:02 Oxygen Delivery Room Air 02/13/25 14:02 Reviewed MDM - Extremity Injury (Lower) MDM Narrative Medical decision making narrative: X-ray right foot negative for any fractures or acute findings. Discussed supportive therapy. Advised patient follow-up podiatry if pain persists after 10 days. Discussed physical exam findings. Advised supportive measures and signs/symptoms to go to the ER. Pt is appropriate for outpt treatment and f/u. Differential Diagnosis Differential diagnosis: Likely other (Toe sprain, toe fracture, arthritis, gout, bunions, plantar fasciitis, foot fracture, foot sprain) Imaging Data Radiologist's impression: ITS Impressions Foot X-Ray 02/13/25 14:21 Impression: No acute fracture or malalignment. Critical Care Time Critical Care Time Critical Care Time: No Discharge Plan Discharge Clinical Impression: Foot pain, right Patient Disposition: Home Condition: Stable Instructions: Foot Sprain (ED) Additional Instructions: The x-ray right foot is negative for any fractures or acute findings. Rest and elevate the leg; bear weight as tolerated Wear good supportive inserts in your shoes. Apply ice 15-20 minute intervals several times a day You may take ibuprofen 600 mg to 800 mg every 6-8 hours. Do not exceed more than 800 mg of ibuprofen per dose. Do not exceed more than 3200 mg ibuprofen in a day. You may take up to 1000 mg Tylenol every 6-8 hours. Do not exceed 1000 mg per dose, do exceed more than 4000 mg of Tylenol in a day. 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 Patient Language: Vietnamese Prescriptions: No Action duloxitine trazadone Follow-up/Referrals: [facility] [Provider Group, Podiatry] Venu Ojeda DPM [Physician, Podiatry] Heraclio Infante Jr., DPM [Physician, Podiatry] PHYSICIAN,[employer] [Primary Care Provider, Internal Medicine] Time of Disposition: 14:33
== END 2025-02-13 14:37 | disposition home or self-care (01) ==
DX: M79.671 Pain in right foot (principal); F32.A Depression, unspecified
CPT/HCPCS: 73630; 99203; G0463